=== PATIENT | female | born 1955 | race Caucasian/White ===

== ENCOUNTER 2016-10-11 14:26 | Emergency (ER) | payer BC ==
[~2016-10-11] VITALS: Ht 175.3 cm; Wt 63.6 kg
[~2016-10-11 14:26] MED LIST: AMBIEN 10MG10 MG PO; ATIVAN0.5 MG PO; FERROUS SU325 MG/TAB PO; FOLIC ACID 40400 MCG PO; LAMICTAL ODT200 MG MM; LEVOTHYROXINE0.1 MG PO; MICRO-K 1010 MEQ PO; MS CONTIN 330 MG/TAB PO; NORCO 325 MG-7.1 TAB; PERCOCET 325 MG1 TAB PO; ROXICODONE 55 MG/TAB PO; SERTRALINE HCL100 MG PO; TRIAMTERENE/HCT1 TAB PO; VICODIN PO; VITAMIN C BUFF500 MG PO; WELLBUTRIN SR200 MG PO; ZOLPIDEM10 MG PO; ZYBAN150 MG PO
[2016-10-11 14:30] VITALS: TEMP 99
[2016-10-11] MEDS ORDERED: BACTROBAN NASA0.9 GM NS (15:51)
[2016-10-11] MEDS ORDERED: AMOXICILLIN/CLA1 TA1 PO (15:51)
[2016-10-11 16:06] VITALS: BP 132/78; PULSE 80
== END 2016-10-11 16:07 | disposition home or self-care (01) ==
LOC: COL.ER 14:26
DX: S62.521A Displaced fracture of distal phalanx of right thumb, initial encounter for closed fracture (principal); W54.0XXA Bitten by dog, initial encounter

== ENCOUNTER → 2017-06-24 | Outpatient (CLI) | payer BC ==
[~2017-06-24] MED LIST changes: +AMOXICILLIN/CLA1 TA1 PO; +BACTROBAN NASA0.9 GM NS
== END ==
LOC: BHSO 12:49
DX: F41.1 Generalized anxiety disorder (principal)
CPT/HCPCS: G0463

== ENCOUNTER → 2017-11-15 | Outpatient (CLI) | payer BC | LOC: BHSO 14:15 | DX: F33.41 Major depressive disorder, recurrent, in partial remission (principal) ==

== ENCOUNTER → 2018-05-12 | Outpatient (CLI) | payer BC | LOC: BHSO 11:12 | DX: F33.41 Major depressive disorder, recurrent, in partial remission (principal) | CPT/HCPCS: G0463 ==

== ENCOUNTER 2018-08-05 00:18 | Emergency (ER) | payer BC ==
[~2018-08-05] VITALS: Ht 175.3 cm; Wt 63.6 kg
[2018-08-05 00:25] VITALS: BP 136/77; TEMP 97.8
[2018-08-05 01:43] LABS: BASO # 0.1 (0.0-0.2); BASO % 1.3 % (0.0-2.0); EOS # 0.3 (0.0-0.7); EOS % 4.7 % (0-4.0); GRAN # 2.5 (1.4-6.5); GRAN % 47.9 % (42.2-75.2); HEMATOCRIT 41.9 % (37.0-47.0); HEMOGLOBIN 13.7 g/dl (12.5-16.0); LYMPH % 36.8 % (20.0-51.0); MEAN CELL VOLUME 95 fl (80.0-100.0); MEAN CORPUSCULAR HEMOGLOBIN 31 pg (27.0-31.0); MEAN CORPUSCULAR HGB CONC 33 g/dl (33.0-37.0); MEAN PLATELET VOLUME 9.1 fl (7.4-10.4); MONO # 0.5 (0.1-0.6); MONO % 8.9 % (1.7-9.3); PLATELET COUNT 243 K/mm3 (130-400); RED BLOOD COUNT 4.39 M/mm3 (4.10-5.30); REDCELL DISTRIBUTION WIDTH-CV 14.5 % (11.5-14.5)
[2018-08-05 01:55] LABS: ALANINE AMINOTRANSFERASE 18 U/L (9-52); ALBUMIN 4.8 gm/dL (3.5-5.0); ALCOHOL(ethanol),MEDICAL 240 mg/dL; ALKALINE PHOSPHATASE 66 U/L (50-136); ANION GAP 12 mmol/L (7-16); AST,SGOT 52 U/L (15-37); BILIRUBIN,TOTAL 0.2 mg/dL (0.0-1.0); BLOOD UREA NITROGEN 15 mg/dL (7-17); C-REACTIVE PROTEIN < 0.5 mg/dL (0.0-0.9); CALCIUM 9.4 mg/dL (8.4-10.2); CARBON DIOXIDE 28 mmol/L (22-30); CHLORIDE 104 mmol/L (98-107); CREATININE, serum 0.65 mg/dL (0.52-1.25); GLUCOSE 94 mg/dL (74-106); LIPASE 155 U/L (23-300); SODIUM 144 mmol/L (137-145); TOTAL PROTEIN 8.4 gm/dL (6.4-8.2)
[2018-08-05 02:09] LABS: COLLECTION METHOD CLEAN CATCH
[2018-08-05 02:15] LABS: PH 6 (5-8); SQUAMOUS EPITHELIAL None Seen /hpf; URINE APPEARANCE Clear; URINE BACTERIA None Seen /hpf; URINE BILIRUBIN Negative (NEGATIVE); URINE BLOOD 2+ (NEGATIVE); URINE COLOR Colorless; URINE GLUCOSE Negative (NEGATIVE); URINE KETONE Negative (NEGATIVE); URINE LEUKOCYTE ESTERASE Negative (NEGATIVE); URINE NITRATE Negative (NEGATIVE); URINE PROTEIN(semi-quant) Negative (NEGATIVE); URINE UROBILINOGEN Negative (NEGATIVE)
[2018-08-05] MEDS ORDERED: FLEXERIL 1010 MG/TAB PO (03:06)
[2018-08-05 04:05] VITALS: PULSE 84
== END 2018-08-05 04:05 | disposition home or self-care (01) ==
LOC: COL.ER 00:18
PROVIDERS: Emergency Medicine
DX: M54.5 Low back pain (principal)
CPT/HCPCS: J1170; J1885; J7040

== ENCOUNTER → 2018-10-30 | Outpatient (CLI) | payer BC ==
[~2018-10-30] MED LIST changes: +FLEXERIL 1010 MG/TAB PO
== END ==
LOC: BHSO 11:48
DX: F33.1 Major depressive disorder, recurrent, moderate (principal)
CPT/HCPCS: G0463

== ENCOUNTER → 2019-01-25 | Outpatient (CLI) | payer BC | LOC: BHSO 15:09 | DX: F10.20 Alcohol dependence, uncomplicated (principal) | CPT/HCPCS: G0463 ==

== ENCOUNTER → 2019-03-28 | Outpatient (CLI) | payer BC | LOC: BHSO 13:52 | DX: F33.42 Major depressive disorder, recurrent, in full remission (principal) | CPT/HCPCS: G0463 ==

== ENCOUNTER → 2019-03-29 | Outpatient (CLI) | payer BC | LOC: MC.RAD 15:20 | DX: Z12.31 Encounter for screening mammogram for malignant neoplasm of breast (principal) ==

== ENCOUNTER 2019-04-05 14:44 | Outpatient (CLI) | payer BC ==
[~2019-04-05] VITALS: Ht 175.3 cm; Wt 66.2 kg
[2019-04-05 15:00] VITALS: BP 147/89; PULSE 65; TEMP 98.8
[2019-04-05] MEDS ORDERED: SYNTHROID0.112 MG/T PO (15:24)
[2019-04-05] MEDS ORDERED: MAXZIDE 50 MG-71 TAB PO (15:28)
[2019-04-05] MEDS ORDERED: WELLBUTRIN SR150 M1 PO (15:29)
[2019-04-05] MEDS ORDERED: CYMBALTA 60MG60 MG PO (15:30)
[2019-04-05] MEDS ORDERED: LAMICTAL XR50 MG PO (15:30)
[2019-04-05] MEDS ORDERED: ARYMO ER15 MG PO (15:31)
[2019-04-05 15:32] LABS: BASO # 0.1 (0.0-0.2); BASO % 0.4 % (0.0-2.0); EOS % 0.2 % (0-4.0); GRAN # 10.4 (1.4-6.5); GRAN % 85.2 % (42.2-75.2); HEMATOCRIT 44.5 % (37.0-47.0); HEMOGLOBIN 15.3 g/dl (12.5-16.0); LYMPH # 0.9 (1.2-3.4); LYMPH % 7.5 % (20.0-51.0); MEAN CELL VOLUME 89 fl (80.0-100.0); MEAN CORPUSCULAR HEMOGLOBIN 31 pg (27.0-31.0); MEAN CORPUSCULAR HGB CONC 34 g/dl (33.0-37.0); MEAN PLATELET VOLUME 9.3 fl (7.4-10.4); MONO # 0.8 (0.1-0.6); MONO % 6.3 % (1.7-9.3); PLATELET COUNT 356 K/mm3 (130-400); REDCELL DISTRIBUTION WIDTH-CV 12.3 % (11.5-14.5)
[2019-04-05] MEDS ORDERED: PERCOCET 325 MG1 TAB PO (15:32)
[2019-04-05 15:43] LABS: ALBUMIN 4.7 gm/dL (3.5-5.0); BILIRUBIN,TOTAL 0.4 mg/dL (0.0-1.0); CALCIUM 9.8 mg/dL (8.4-10.2); CREATININE, serum 0.43 (0.52-1.25); TOTAL PROTEIN 8.1 gm/dL (6.4-8.2)
[2019-04-05 15:54] LABS: POTASSIUM 2.8 mmol/L (3.4-5.0)
[2019-04-05 17:00] VITALS: BP 150/92; PULSE 88
--- NOTE | 2019-04-05 17:15 | NUR ---
Pt is ready to go home, she has spoken with her physician who has called in zofran and pottasium rx for her and she states she has f/u with him tommorow. PT is escorted to exit via wheelchair. Son is driving her home.
== END 2019-04-05 17:45 | disposition home or self-care (01) ==
LOC: COL.RAD 14:44
PROVIDERS: Family Medicine
DX: K57.30 Diverticulosis of large intestine without perforation or abscess without bleeding (principal); R06.09 Other forms of dyspnea
CPT/HCPCS: J2550; J7030; Q9967

== ENCOUNTER → 2019-11-06 | Outpatient (CLI) | payer BC ==
[~2019-11-06] MED LIST changes: +ARYMO ER15 MG PO; +CYMBALTA 60MG60 MG PO; +LAMICTAL XR50 MG PO; +MAXZIDE 50 MG-71 TAB PO; +SYNTHROID0.112 MG/T PO; +WELLBUTRIN SR150 M1 PO
== END ==
LOC: BHSO 14:02
DX: F41.1 Generalized anxiety disorder (principal)
CPT/HCPCS: G0463

== ENCOUNTER → 2020-06-26 | Outpatient (CLI) | payer MEDICARE, BC | LOC: COL.RAD 09:37 | DX: M54.81 Occipital neuralgia (principal); G43.909 Migraine, unspecified, not intractable, without status migrainosus ==

== ENCOUNTER 2020-09-19 13:20 | Emergency (ER) | payer MEDICARE, BC ==
[~2020-09-19] VITALS: Ht 175.3 cm; Wt 65.9 kg
[2020-09-19 13:28] VITALS: TEMP 98.4
[2020-09-19 14:19] LABS: BASO % 0.4 % (0.0-2.0); EOS # 0.1 (0.0-0.7); EOS % 0.5 % (0-4.0); GRAN # 8.4 (1.4-6.5); GRAN % 73.4 % (42.2-75.2); HEMATOCRIT 48.7 % (37.0-47.0); HEMOGLOBIN 16.5 g/dl (12.5-16.0); LYMPH # 1.8 (1.2-3.4); LYMPH % 15.4 % (20.0-51.0); MEAN CELL VOLUME 89 fl (80.0-100.0); MEAN CORPUSCULAR HEMOGLOBIN 30 pg (27.0-31.0); MEAN CORPUSCULAR HGB CONC 34 g/dl (33.0-37.0); MEAN PLATELET VOLUME 9.6 fl (7.4-10.4); MONO # 1.1 (0.1-0.6); MONO % 9.9 % (1.7-9.3); PLATELET COUNT 311 K/mm3 (130-400); RED BLOOD COUNT 5.45 M/mm3 (4.10-5.30); REDCELL DISTRIBUTION WIDTH-CV 12.2 % (11.5-14.5)
[2020-09-19 14:19] LABS: COLLECTION METHOD CLEAN CATCH
[2020-09-19 14:26] LABS: MUCOUS Present /lpf; PH 6 (5-8); SQUAMOUS EPITHELIAL 0-2 /hpf; URINE APPEARANCE Hazy; URINE BACTERIA None Seen /hpf; URINE BILIRUBIN Positive (NEGATIVE); URINE BLOOD 3+ (NEGATIVE); URINE COLOR Amber; URINE GLUCOSE Negative (NEGATIVE); URINE KETONE 2+ (NEGATIVE); URINE LEUKOCYTE ESTERASE Negative (NEGATIVE); URINE NITRATE Negative (NEGATIVE); URINE PROTEIN(semi-quant) 3+ (NEGATIVE); URINE UROBILINOGEN Negative (NEGATIVE)
[2020-09-19 14:30] LABS: ALANINE AMINOTRANSFERASE 28 U/L (4-34); ALBUMIN 5.1 gm/dL (3.5-5.0); ALKALINE PHOSPHATASE 62 U/L (50-136); ANION GAP 15 mmol/L (7-16); AST,SGOT 56 U/L (15-37); BILIRUBIN,TOTAL 1.1 mg/dL (0.0-1.0); BLOOD UREA NITROGEN 20 mg/dL (7-17); CALCIUM 10.1 mg/dL (8.4-10.2); CARBON DIOXIDE 23 mmol/L (22-30); CHLORIDE 97 mmol/L (98-107); CREATININE, serum 0.71 (0.52-1.25); GLUCOSE 120 mg/dL (74-106); LIPASE 92 U/L (23-300); POTASSIUM 3.6 mmol/L (3.4-5.0); SODIUM 135 mmol/L (137-145); TOTAL PROTEIN 9.3 gm/dL (6.4-8.2)
[2020-09-19 14:32] LABS: C-REACTIVE PROTEIN < 0.5 mg/dL (0.0-0.9)
[2020-09-19] MEDS ORDERED: ZOFRAN ODT4 MG PO (15:03)
[2020-09-19 15:26] VITALS: BP 128/78; PULSE 80
== END 2020-09-19 15:24 | disposition home or self-care (01) ==
LOC: COL.ER 13:20
PROVIDERS: Family Medicine
DX: K52.9 Noninfective gastroenteritis and colitis, unspecified (principal); G89.29 Other chronic pain; M54.9 Dorsalgia, unspecified; Z87.891 Personal history of nicotine dependence; Z79.891 Long term (current) use of opiate analgesic
CPT/HCPCS: J2405; J7120

== ENCOUNTER → 2022-02-16 | Outpatient (CLI) | payer MEDICARE ==
[~2022-02-16] MED LIST changes: +ZOFRAN ODT4 MG PO
== END ==
LOC: MC.RAD 11:08
DX: Z12.31 Encounter for screening mammogram for malignant neoplasm of breast (principal); Z78.0 Asymptomatic menopausal state